=== PATIENT | male | born 1970 | race Hispanic/Latino ===

== ENCOUNTER 2025-04-15 09:44 | Emergency (ER) | payer SELFPAY ==
[2025-04-15] MEDS ORDERED: Acetaminophen 500 MG TAB ONE (09:59)
[2025-04-15] MEDS ORDERED: Ketorolac Tromethamine 30 MG (1 mL) VIAL ONE (10:46)
== END 2025-04-15 10:51 | disposition home or self-care (01) ==
LOC: ERS 09:44
DX: S80.01XA Contusion of right knee, initial encounter (principal); S80.11XA Contusion of right lower leg, initial encounter; F17.210 Nicotine dependence, cigarettes, uncomplicated; V28.09XA Other motorcycle driver injured in noncollision transport accident in nontraffic accident, initial encounter
CPT/HCPCS: 96372; 99283; J1885

== ENCOUNTER 2025-05-07 10:11 | Emergency (ER) | payer SELFPAY | END 2025-05-07 11:50 | disposition home or self-care (01) | LOC: ERS 10:11 | DX: M25.561 Pain in right knee (principal); F17.210 Nicotine dependence, cigarettes, uncomplicated; V18.0XXA Pedal cycle driver injured in noncollision transport accident in nontraffic accident, initial encounter | CPT/HCPCS: 96372 ==